=== PATIENT | male | born 1940 | race Caucasian/White ===

== ENCOUNTER 2024-04-24 03:05 | Emergency (ER) | payer OTHER, SELFPAY ==
[2024-04-24] VITALS (16 sets, daily range): BP systolic 95–121; BP diastolic 40–84; PULSE 54–85; RESP 15–26; TEMP 36.3–36.6; O2SAT 96–100
--- NOTE | ~2024-04-24 | CT_ITS ---
EXAMINATION: CT brain wo con DATE: 04/24/2024 06:47 INDICATION: Altered mental status. Sepsis. TECHNIQUE: Computed tomography (CT) of the head was performed without intravenous contrast. Sagittal and coronal reconstructions were performed. The mA was adjusted according to patient size. Iterative reconstruction technique was employed. The dose-length product was 1504.69 mGy-cm. COMPARISON: None FINDINGS: No acute intracranial hemorrhage, acute infarction or abnormal extra axial fluid collection. There is mild scattered white matter hypoattenuation consistent with chronic small vessel ischemic disease. Symmetric prominence of the sulci and and subarachnoid spaces overlying the convexities consistent wi th moderate age-appropriate diffuse cerebral volume loss. Ventricles are normal and symmetric. No ma ss/mass effect. Changes of bilateral intraocular lens replacement. The orbits, paranasal sinuses and mastoid air cells are normal. Intracranial calcified cerebral atherosclerosis is noted. IMPRESSION: 1. No acute intracranial process. 2. Age-related changes in the brain including moderate diffuse volume loss and mild scattered white m atter hypoattenuation consistent with chronic small vessel ischemic disease. Reviewed, dictated and finalized at location A. IMPRESSION: 1. No acute intracranial process. 2. Age-related changes in the brain including moderate diffuse volume loss and mild scattered white matter hypoattenuation consistent with chronic small vesse l ischemic disease.
--- NOTE | ~2024-04-24 | XR_ITS ---
EXAMINATION: XR chest 1V portable DATE: 04/24/2024 06:15 INDICATION: Altered mental status and sepsis TECHNIQUE: frontal view of the chest was obtained. COMPARISON: None FINDINGS: Elevation the left hemidiaphragm. Airspace opacities in the left lower lung zone which could represen t associated atelectasis or pneumonia. No pleural effusion or pneumothorax. The cardiomediastinal mallory houette is within normal limits for AP technique. IMPRESSION: 1. Opacities in the left lower lung zone which could relate to atelectasis given the elevated left he midiaphragm although differential includes pneumonia. Reviewed, dictated and finalized at location A. IMPRESSION: 1. Opacities in the left lower lung zone which could relate to atelectasis give n the elevated left hemidiaphragm although differential includes pneumonia.
[2024-04-24] MEDS: CEFEPIME 2 GM/NS 50 ML 2 GM/50 ML BAG IVPB ×2 (05:28→16:33)
[2024-04-24 06:43] LABS: Alanine Aminotransferase 22 U/L (6-50); Albumin Level 2.6 g/dL (3.5-5.1); Alkaline Phosphatase 84 U/L (38-126); Anion Gap 7 mmol/L (4-12); Aspartate Amino Transferase 40 U/L (17-59); Bilirubin,Total 1.2 mg/dL (0.2-1.3); Blood Urea Nitrogen 35 mg/dL (9-20); Calcium 7.6 mg/dL (8.4-10.2); Carbon Dioxide 32 mmol/L (22-30); Chloride 102 mmol/L (98-107); Estimated CRCL calculation 43 ml/min; Estimated Glomerular Filt Rate > 60; Glucose 103 mg/dL (65-110); Lactic Acid Reflex 1.9 mmol/L (0.7-2.0); Lipase 37 U/L (23-300); Sodium 141 mmol/L (137-145); Troponin I 0.019 ng/mL (0.000-0.034)
[2024-04-24 06:58] LABS: Basophils Percent Auto 0.2 % (0.2-1.2); Hematocrit 23.7 % (42.0-52.0); Immature Granulocyte Absolute 0.06 K/mm3 (0.00-0.031); Immature Granulocyte Percent A 1.4 % (0-0.5); Lymphocytes Absolute Auto 0.23 K/mm3 (0.9-3.2); Lymphocytes Percent Auto 5.4 % (18.3-44.2); Mean Corpuscular HGB Conc 29.5 g/dl (32-36); Mean Corpuscular Hemoglobin 29.3 pg (26-34); Mean Corpuscular Volume 99.2 fl (80-100); Mean Platelet Volume 13.6 fl (7.4-10.4); Monocytes Absolute Auto 0.2 K/mm3 (0.1-0.6); Monocytes Percent Auto 5.7 % (2.6-8.5); Neutrophils Absolute Auto 3.7 K/mm3 (1.3-6.7); Neutrophils Percent Auto 87.3 % (45.5-73.1); Nucleated Red Blood Cells Perc 0.7 % (0.0-0.2); Platelet Count Result 84 k/mm3 (150-375); Red Blood Count 2.39 M/mm3 (4.6-6.20); Red Cell Distribution Width 22.1 % (11.5-14.5); White Blood Count 4.2 K/mm3 (4.5-10.0)
[2024-04-24 07:01] LABS: Anisocytosis 2+; Hypochromasia 1+; Platelet Estimate Decreased (Adequate)
[2024-04-24 07:02] LABS: INR 2.7; Partial Thromboplastin Time 36.6 Seconds (22.3-36.8); Prothrombin Time 29.7 Seconds (11.1-14.7)
[2024-04-24 07:28] LABS: Schistocytes None Seen
--- NOTE | 2024-04-24 07:29 | PC.NURSE ---
See downtime charting prior to 0700
--- NOTE | 2024-04-24 07:39 | ED.PROGRESS ---
Subjective Date/time seen: 04/24/24 07:39 Interval history: Patient seen and evaluated during [facility] EMR down time, please see down time charting for further details including HPI, ROS, Exam, MDM, and Disposition. Objective Data Vital Signs Vital Signs: Vital Signs - 24 hr 04/24/24 07:10 Temperature 36.3 C L Pulse Rate 65 Respiratory Rate 18 Blood Pressure 106/40 L Pulse Oximetry 96 Intake/Output Intake/Output: Intake & Output 04/21/24 04/22/24 04/23/24 04/24/24 23:59 23:59 23:59 23:59 Intake Total 1050 Balance 1050 Meds/Results Medications: Active Medications Generic Name Dose Route Start Last Admin Trade Name Freq PRN Reason Stop Dose Admin Norepinephrine Bitartrate 8 mg in 250 mls @ 9.375 mls/hr 04/24/24 06:40 Levophed 8 Mg/D5w 250 Ml IV CONT .Q24H ISAAC Protocol 5 MCG/MIN Vancomycin HCl 1,500 mg in 500 mls @ 250 mls/hr 04/24/24 06:00 Vancomycin 1,500 Mg/Ns 500 Ml IVPB 04/24/24 07:59 ONCE ONE Vancomycin HCl 1,000 mg in 250 mls @ 250 mls/hr 04/25/24 06:00 Vancomycin 1,000 Mg/Ns 250 Ml IVPB Q24H [facility] Radiology Results: ITS Impressions Chest X-Ray 04/24/24 06:38 IMPRESSION: 1. Opacities in the left lower lung zone which could relate to atelectasis given the elevated left hemidiaphragm although differential includes pneumonia. Head CT 04/24/24 06:57 IMPRESSION: 1. No acute intracranial process. 2. Age-related changes in the brain including moderate diffuse volume loss and mild scattered white matter hypoattenuation consistent with chronic small vessel ischemic disease. Labs Labs: Laboratory Results - last 24 hr 04/24/24 04/24/24 04:27 06:11 WBC 4.2 L RBC 2.39 L Hgb 7.0 L Hct 23.7 L MCV 99.2 MCH 29.3 MCHC 29.5 L RDW 22.1 H Plt Count 84 L MPV 13.6 H Immature Gran % (Auto) 1.4 H Neut % (Auto) 87.3 H Lymph % (Auto) 5.4 L [place] % (Auto) 5.7 Eos % (Auto) 0.0 Baso % (Auto) 0.2 Lymph # (Auto) 0.23 L [place] # (Auto) 0.2 Eos # (Auto) 0.0 Baso # (Auto) 0.0 Abs Immat Gran (auto) 0.06 H Absolute Neuts (auto) 3.7 Absolute Nucleated RBC 0.030 H Nucleated RBC % 0.7 H Platelet Estimate Decreased Hypochromasia 1+ Anisocytosis 2+ Schistocytes None seen PT 29.7 H INR 2.7 APTT 36.6 Sodium 141 Potassium 3.0 L Chloride 102 Carbon Dioxide 32 H Anion Gap 7 BUN 35 H Creatinine 0.90 Estim Creat Clear Calc 43 Estimated GFR > 60 Glucose 103 Lactic Acid 1.9 Calcium 7.6 L Total Bilirubin 1.2 AST 40 ALT 22 Alkaline Phosphatase 84 Troponin I 0.019 Total Protein 5.0 L Albumin 2.6 L Lipase 37 Blood Type O Positive Antibody Screen Negative
[2024-04-24] MEDS: NOREPINEPHRINE 8 MG/D5W 250 ML 8 MG/250 ML BAG 9.38 MG IV CONT (07:42)
[2024-04-24 08:40] LABS: MRSA (PCR) NOT DETECTED (NOT DETECTE)
[2024-04-24 09:08] LABS: Alveolar/Arterial O2 Gradient 501.5 mmHg; Base Excess ABG 5.7 mEq/l (+/-2.0); Fractional Inspired Oxygen 100 %; HCO3 ABG 29.1 mEq/l (22.0-26.0); Oxygen Content ABG 10.9 %vol (16.0-22.0); Oxygen Saturation ABG 99.3 % (95.0-100.0); Oxyhemoglobin 98.3 % THb (90.0-100.0); PCO2 ABG 37.1 mmHg (35.0-45.0); PO2 ABG 174.4 mmHg (80.0-100.0); PO2 FiO2 Ratio Arterial Blood 1.74 %
[2024-04-24 09:10] LABS: pH ABG 7.512 (7.350-7.450)
[2024-04-24 09:12] LABS: Total Hemoglobin 7.6 g/dL (12.0-18.0)
[2024-04-24 09:17] LABS: Device NON-REBREATHER MASK
--- NOTE | 2024-04-24 10:30 | PCCCNOTE ---
1031-Called to the pt's bedside by the pt's nurse to educate the on hospice services. Did [facility] [place] [facility]. Educated her on Hospice end of life care. She stated she wanted to discuss these options with the family and will f/u with staff upon their decision. Pt is currently pending transport to [facility] ICU.-chantel.
--- NOTE | 2024-04-24 11:05 | PC.NURSE ---
keeps bending RUE causing occluded line to norepinephrine. Verbal order for soft restraint to be applied to RUE
[2024-04-24] MEDS: DOXYCYCLINE 100 MG/NS 100 ML 100 MG/100 ML BAG IVPB (15:30)
--- NOTE | 2024-04-24 20:14 | PC.NURSE ---
Pt son asked me to contact hospice to acquire more information. Patricia currently on the phone speaking to the son on the hallway phone.
--- NOTE | 2024-04-24 21:55 | PC.NURSE ---
Spoke with Teressa from [facility] transfer for a status update. Still no beds available at [facility].
[2024-04-25] VITALS (9 sets, daily range): BP systolic 101–116; BP diastolic 52–89; PULSE 75–90; RESP 20–26; TEMP 36.5–36.8; O2SAT 100
[2024-04-25] MEDS: DOXYCYCLINE 100 MG/NS 100 ML 100 MG/100 ML BAG IVPB (02:50)
[2024-04-25] MEDS: CEFEPIME 2 GM/NS 50 ML 2 GM/50 ML BAG IVPB (03:54)
--- NOTE | 2024-04-25 07:56 | ED.PROGRESS ---
Subjective Date/time seen: 04/25/24 07:56 Interval history: Patient is an 84-year-old male being boarded here in the emergency department pending a bed in the ICU at [facility]. Patient is on norepinephrine peripherally as he needs blood pressure support and antibiotics for treatment of sepsis. Patient is DNR and DNI with a history of profound lung cancer. Patient has a terminal prognosis on my assessment and frequent reassessments over last day while he has been here in the ER. I have had frequent discussions with the and the son now at bedside informing them of patient's presentation, my concerns for his condition, his suffering and his goals of care. Patient was made DNI and DNR by discussions with the yesterday and they were agreeable to no invasive measures such as central access, procedures. Today I had discussions with the son who would like to pursue hospice conversations which I thought were very appropriate given his father's clinical status and abrupt deterioration over the past few weeks according to the . Hospice will be called to evaluate the patient at bedside here. Patient endorsed to the morning ER physician. Review of Systems Review of Systems All systems reviewed & are unremarkable except as noted in HPI and below Objective Data Vital Signs Vital Signs: Vital Signs - 24 hr 04/24/24 08:19 04/24/24 09:07 04/24/24 10:08 Temperature 36.6 C 36.5 C Pulse Rate 63 77 69 Respiratory Rate 24 H 23 H 25 H Blood Pressure 103/45 L 96/63 L 108/56 L Pulse Oximetry 100 98 98 Oxygen Delivery Oxygen Flow Rate 04/24/24 10:30 04/24/24 10:32 04/24/24 11:48 Temperature 36.4 C Pulse Rate 75 76 66 Respiratory Rate 15 23 H 25 H Blood Pressure 112/54 L 106/74 Pulse Oximetry 97 100 Oxygen Delivery Oxygen Flow Rate 04/24/24 14:25 04/24/24 16:36 04/24/24 18:49 Temperature 36.6 C 36.4 C L Pulse Rate 71 85 Respiratory Rate 20 24 H Blood Pressure 95/65 L 107/54 L Pulse Oximetry 100 96 96 Oxygen Delivery Nasal Cannula Oxygen Flow Rate 04/24/24 19:09 04/24/24 23:26 04/25/24 06:33 Temperature 36.5 C Pulse Rate 71 67 80 Respiratory Rate 23 H 18 20 Blood Pressure 121/50 L 104/44 L 115/74 Pulse Oximetry 98 99 100 Oxygen Delivery Oxygen Flow Rate 04/25/24 07:13 04/25/24 07:14 Temperature Pulse Rate 90 84 Respiratory Rate 20 Blood Pressure 111/89 Pulse Oximetry 100 Oxygen Delivery Oxygen Flow Rate Intake/Output Intake/Output: Intake & Output 04/22/24 04/23/24 04/24/24 04/25/24 23:59 23:59 23:59 23:59 Intake Total 1200 150 Balance 1200 150 Meds/Results Medications: Active Medications Generic Name Dose Route Start Last Admin Trade Name Freq PRN Reason Stop Dose Admin Norepinephrine Bitartrate 8 mg in 250 mls @ 9.375 mls/hr 04/24/24 06:40 04/24/24 07:42 Levophed 8 Mg/D5w 250 Ml IV CONT 5 mcg/min .Q24H ISAAC 9.38 mls/hr Administration Protocol 5 MCG/MIN Cefepime HCl 2 gm in 50 mls @ 100 mls/hr 04/24/24 15:00 04/25/24 04:25 Maxipime 2 Gm/Ns 50 Ml IVPB Infused Q12H ISAAC Infusion Doxycycline Hyclate 100 mg in 100 mls @ 100 mls/hr 04/24/24 14:00 04/25/24 03:54 Vibramycin 100 Mg/Ns 100 Ml IVPB Infused Q12H ISAAC Infusion Radiology Results: ITS Impressions Chest X-Ray 04/24/24 06:38 IMPRESSION: 1. Opacities in the left lower lung zone which could relate to atelectasis given the elevated left hemidiaphragm although differential includes pneumonia. Head CT 04/24/24 06:57 IMPRESSION: 1. No acute intracranial process. 2. Age-related changes in the brain including moderate diffuse volume loss and mild scattered white matter hypoattenuation consistent with chronic small vessel ischemic disease. Labs Labs: Laboratory Results - last 24 hr 04/24/24 04/24/24 04:59 07:26 Puncture Site Not Reportable ABG pH 7.512 H* ABG pCO2 37.1 ABG pO2 174.4 H ABG PO2/FiO2 Ratio 1.74 ABG HCO3 29.1 H ABG O2 Saturation 99.3 ABG O2 Content 10.9 L ABG Base Excess 5.7 A-a Gradient 501.5 Oxyhemoglobin 98.3 Total Hemoglobin 7.6 L* O2 Delivery Device Non-rebreather mask O2 Liters/Min 15.0 FiO2 100 Nasal MRSA (PCR) Not detected
--- NOTE | 2024-04-25 08:01 | PC.NURSE ---
Michele from care coordination at pt bedside to talk to family about hospice options.
--- NOTE | 2024-04-25 08:33 | PCCCNOTE ---
Spoke with family and pt is present; hospice is appropriate and family would like to move forward with hopice. Eduin ([phone]) from [employer] contacted and will send a person to evaluate shortly. Information provided.
--- NOTE | 2024-04-25 09:20 | PC.NURSE ---
Patricia nurse to beside to talk POC with family who have chosen hospice route for pt.
[2024-04-25] MEDS: SODIUM CHLORIDE 0.9% IV 1,000 ML 125 ML IV CONT (09:35)
[2024-04-25] MEDS: ONDANSETRON INJ 4 MG/2 ML VIAL IV PUSH (10:48)
[2024-04-25] MEDS: HYDROmorphone HCL INJ (*CRX) 1 MG/ML SYR 0.5 MG IV PUSH (10:50)
== END 2024-04-25 10:45 | disposition hospice, inpatient (51) ==
PROVIDERS: Student in an Organized Health Care Education/Training Program; Emergency Provider Emergency Medicine
DX: A41.9 Sepsis, unspecified organism (principal); R65.21 Severe sepsis with septic shock; C34.90 Malignant neoplasm of unspecified part of unspecified bronchus or lung; J18.9 Pneumonia, unspecified organism; E87.6 Hypokalemia; Z51.5 Encounter for palliative care; Z66 Do not resuscitate
CPT/HCPCS: 36415; 36600; 70450; 71045; 80053; 82805; 82810; 83605; 83690; 84484; 85018; 85025; 85610; 85730; 86850; 86900; 86901; 87641; 96365; 96366; 96367; 96368; 96375; 99285; J0692; J1170; J2405; J7030; J7120

== ENCOUNTER 2024-04-25 11:27 | HOS | payer OTHER, MEDICARE, SELFPAY ==
[2024-04-25 11:30] VITALS: BP 102/49; PULSE 61; RESP 20; TEMP 36.1; O2SAT 91
[2024-04-25 12:13] VITALS: PULSE 61; RESP 18
[2024-04-25] MEDS: MORPHINE SULFATE INJ (*CRX) 50 MG in SODIUM CHLORIDE 0.9% IV 95 ML IV CONT (12:13)
[2024-04-25 12:15] VITALS: O2SAT 93
[2024-04-25] MEDS: LORazepam INJ (*CRX) 2 MG/ML VIAL 1 MG IV PUSH (12:16)
[2024-04-25] MEDS: GLYCOPYRROLATE INJ (*SP) 0.2 MG/ML VIAL 0.1 MG IV PUSH (15:59)
[2024-04-25 20:00] VITALS: BP 94/48; PULSE 86; RESP 22; TEMP 36.5; O2SAT 68
[2024-04-26 08:00] VITALS: PULSE 81; O2SAT 72
--- NOTE | 2024-04-26 10:21 | PM.IMHP ---
H&P: HPI History of Present Illness Date/Time: 04/26/24 10:21 Chief Complaint: Uncontrolled pain Narrative: 84-year-old gentleman with severe peripheral arterial disease and chronic cigarette smoking was diagnosed 4 months ago with lung cancer. His last chemotherapy treatment was this week. He was receiving radiation therapy the last week has not been eating or drink or getting out of bed. On 04/24 he became more confused over summoned EMS. He was hypotensive. Sepsis protocol was initiated. Possible infiltrate versus atelectasis right lower lobe. He was pancytopenic. Send cefepime and doxycycline and IV fluids were administered as well as norepinephrine to maintain his blood pressure. After discussion with ED staff spouse opted for comfort hospice service she was having dyspnea and discomfort. Review of Systems Review of Systems: ROS unobtainable: Yes unobtainable due to medical condition PMFSH Past Medical History Medical History (Updated 04/26/24 @ 10:49 by Oniel Felipe MD) Lung cancer Nicotine addiction Peripheral arterial disease with history of revascularization LE revascularization x 2 Family History Family History Mother Bladder cancer Mother Respiratory failure Father Respiratory failure Cerebrovascular accident Father No problems noted. Sibling Cerebrovascular accident Kidney failure Brain cancer Bone cancer Social History Social History (Updated 04/26/24 @ 10:21 by Oniel Felipe MD) Social History: Code Status: DNR Spiritual care concerns: Yes (Shinto) Meds Home Medications and Allergies Allergies Allergy/AdvReac Type Severity Reaction Status Date / Time No Known Allergies Allergy Mild Verified 04/05/08 23:37 Vital Signs Vital Signs - 24 hr 04/25/24 12:13 04/25/24 11:30 04/25/24 12:15 Temperature 97.0 F L Pulse Rate 61 61 Respiratory Rate 18 20 Blood Pressure 102/49 L Pulse Oximetry 91 93 Oxygen Delivery Nasal Cannula Oxygen Flow Rate 5 04/25/24 20:00 04/26/24 08:00 Temperature 97.7 F Pulse Rate 86 81 Respiratory Rate 22 H Blood Pressure 94/48 L Pulse Oximetry 68 L 72 L Oxygen Delivery High Flow Therapy with Na Oxygen Flow Rate 5 Exam Narrative: Elderly emaciated gentleman lying comfortably in hospital bed is unresponsive to verbal stimuli. Neck without JVD. Chest coarse breath sounds. Heart normal S1 and S2 with regular rate and no audible gallops clicks rubs or murmurs. Extremities no edema. Abdomen bowel sounds hypoactive soft no palpable masses and no obvious tenderness. Musculoskeletal without gross deformity to visual inspection. Neurologic cranial nerves symmetric to visual inspection. Assessment and Plan Assessment and plan (1) Hospice care: Code(s): Z51.5 - Encounter for palliative care Status: Acute Assessment and Plan: Meet inpatient hospice criteria due to requiring continues IV morphine for dyspnea and pain P.r.n. palliative regimen ordered 04/25/2024 discussed care and prognosis with brother are in law at bedside (2) Lung cancer: Code(s): C34.90 - Malignant neoplasm of unspecified part of unspecified bronchus or lung Status: Acute (3) Sepsis: Code(s): A41.9 - Sepsis, unspecified organism Status: Acute (4) Pancytopenia: Code(s): D61.818 - Other pancytopenia Status: Acute (5) Metabolic alkalosis: Code(s): E87.3 - Alkalosis Status: Acute (6) Hypokalemia: Code(s): E87.6 - Hypokalemia Status: Acute (7) Protein calorie malnutrition: Code(s): E46 - Unspecified protein-calorie malnutrition Status: Acute (8) Peripheral arterial disease with history of revascularization: Code(s): I73.9 - Peripheral vascular disease, unspecified; Z98.890 - Other specified postprocedural states Status: Acute (9) Nicotine addiction:
[2024-04-26 11:23] VITALS: PULSE 80; RESP 24
[2024-04-26] MEDS: MORPHINE SULFATE INJ (*CRX) 50 MG in SODIUM CHLORIDE 0.9% IV 95 ML IV CONT (11:23)
[2024-04-26 11:30] VITALS: BP 68/48; PULSE 51; RESP 24; TEMP 36.7; O2SAT 73
[2024-04-26 20:12] VITALS: PULSE 0; RESP 0
--- NOTE | 2024-04-28 18:36 | P.DN_ITS ---
Discharge Summary Date and Time Date of : 04/26/24 Time of : 20:02 Provider Pronounced By: 2 RNs Name of First RN That Pronounced: Lauro Dawn Name of Second RN That Pronounced: Mellissa Keane Probable Cause of Probable Cause of : Sepsis due to pancytopenia caused by chemotherapy for lung cancer Summary Hospital Course: Admitted to inpatient hospice service for symptom management. Medications titrated to comfort. Mr. Alarcon peacefully. Additional Data Confirmation of as documented by pronouncing clinician: Pupillary Reflex, Palpable Pulses, Response to Stimuli, Heart Tones and Breath Sounds Name of Provider Notified: Matteo Time Provider Notified: 20:23 Roof Bolter Helper Notified: Yes Date [facility] Notified of : 04/26/24 Time [facility] Notified of : 20:06
== END 2024-04-26 20:02 | disposition expired | DRG 951 ==
PROVIDERS: Admitting Provider Internal Medicine; Visit Provider Internal Medicine
DX: Z51.5 Encounter for palliative care (principal); A41.9 Sepsis, unspecified organism; D61.810 Antineoplastic chemotherapy induced pancytopenia; C34.90 Malignant neoplasm of unspecified part of unspecified bronchus or lung; E46 Unspecified protein-calorie malnutrition; I73.9 Peripheral vascular disease, unspecified; E87.6 Hypokalemia
CPT/HCPCS: A9270; J1596; J2060; J2270